=== PATIENT | female | born 1990 | race Caucasian/White ===

== ENCOUNTER 2016-10-18 14:15 | Emergency (ER) | payer OTHER ==
[2016-10-18 14:21] VITALS: BMI 33.4
--- NOTE | 2016-10-18 15:06 | PDOC ---
History of Present Illness - General Chief Complaint: Chest Pain Stated Complaint: SOB, CHEST PAIN Time Seen by Provider: 10/18/16 15:05 History Source: Patient Exam Limitations: No Limitations - History of Present Illness Initial Comments: 10/18/16 15:06 CHIEF COMPLAINT: Chest pain HISTORY OF PRESENT ILLNESS: This is an otherwise healthy 26 year old female who presents complaining of one day of chest pain. The pain is sharp, midsternal, and does not radiate. It seems to be worse with coughing and deep breathing. She has some mild associated shortness of breath which she attributes to inability to breathe deeply because of pain. She is not a smoker. She has no family or personal history of hypercoaguability. She denies recent travel/trauma /surgery and calf pain. She is on OCP. Vital signs on arrival are unremarkable. REVIEW OF SYSTEMS: GENERAL/CONSTITUTIONAL: No fever or chills. No weakness. No weight change. HEAD, EYES, EARS, NOSE AND THROAT: No change in vision. No ear pain or discharge. No sore throat. CARDIOVASCULAR: See HPI. RESPIRATORY: Pain with coughing/deep breathing, inability to take a deep breath. GASTROINTESTINAL: No nausea, vomiting, diarrhea or constipation. GENITOURINARY: No dysuria, frequency, or change in urination. MUSCULOSKELETAL: No joint or muscle swelling or pain. No neck or back pain. SKIN: No rash or easy bruising. NEUROLOGIC: No headache, vertigo, loss of consciousness, or loss of sensation. PSYCHIATRIC: No depression or anxiety. ENDOCRINE: No increased thirst. No abnormal weight change. HEMATOLOGIC/LYMPHATIC: No anemia, easy bleeding, or history of blood clots. ALLERGIC/IMMUNOLOGIC: No hives or skin allergy. No latex allergy. PHYSICAL EXAM: GENERAL: The patient is awake, alert, and fully oriented, in no acute distress. HEAD: Normal with no signs of trauma. ENT: Pupils equal, round and reactive to light, extraocular movements intact, sclera anicteric, conjunctiva clear. Neck supple. LUNGS: Clear to auscultation bilaterally. Normal excursion. No respiratory distress or use of accessory muscles. CV: RRR, S1/S2, no MRG. Cap refill < 2 sec. Pain reproducible with twisting motion and palpation of sternum. ABDOMEN: Soft, non-distended, non-tender. EXTREMITIES: Normal range of motion, no edema. NEUROLOGICAL: Normal speech, normal gait. CN II-XII grossly intact. PSYCH: Normal mood, normal affect. SKIN: Warm, dry, normal turgor, no rashes or lesions noted. Past History - Past Medical History Allergies/Adverse Reactions: Allergies Allergy/AdvReac Type Severity Reaction Status Date / Time No Known Allergies Allergy Verified 10/18/16 14:17 Home Medications: Ambulatory Orders Ibuprofen [Motrin -] 600 mg PO QID PRN #30 tablet 10/18/16 Norethindrone-E.estradiol-Iron [Melodie 24 Fe 1 mg-20 Mcg Tablet] 1 each PO HS Anemia: No Asthma: No Cancer: No Cardiac Disorders: No CVA: No COPD: No CHF: No Dementia: No Diabetes: No GI Disorders: No Disorders: No HTN: No Hypercholesterolemia: No Liver Disease: No Seizures: No Thyroid Disease: No Other medical history: pcos - Surgical History Abdominal Surgery: No Appendectomy: No Cardiac Surgery: No Cholecystectomy: No Lung Surgery: No Neurologic Surgery: (s/p scoliosis surgery 2006) Orthopedic Surgery: No - Immunization History Immunization Up to Date: Yes - Psycho/Social/Smoking Cessation Hx Anxiety: No Suicidal Ideation: No Smoking Status: No Smoking History: Never smoked Have you smoked in the past 12 months: No Number of Cigarettes Smoked Daily: 0 Information on smoking cessation initiated: No Hx Alcohol Use: No Drug/Substance Use Hx: No Substance Use Type: None Hx Substance Use Treatment: No *Physical Exam - Vital Signs Last Vital Signs Temp Pulse Resp BP Pulse Ox 97.5 F L 75 18 145/84 100 10/18/16 14:17 10/18/16 14:17 10/18/16 14:17 10/18/16 14:17 10/18/16 14:17 Heart Score/ECG Review - ECG Intrepretation Comment:: 10/18/16 17:42 NSR at 69 bpm. Medical Decision Making - Medical Decision Making 10/18/16 17:41 A/P: 26 year old female with chest pain, worse with movement. Suspect costochondritis, less likely PE. 1. EKG 2. CXR 3. D-dimer (on OCP) 4. Toradol 30mg IM for pain 5. Re-assess CXR wet read: normal study D-dimer <200 Patient is feling better following Toradol Followup instructions and return precautions reviewed. *DC/Admit/Observation/Transfer Diagnosis at time of Disposition: Atypical chest pain - Discharge Dispostion Disposition: HOME Admit: No - Prescriptions Prescriptions: Ibuprofen [Motrin -] 600 mg PO QID PRN #30 tablet PRN Reason: Pain - Referrals Referrals: Jailene Thao MD [Primary Care Provider] - 3 days - Patient Instructions Printed Discharge Instructions: DI for Atypical Chest Pain Additional Instructions: You were seen today for chest pain. Your EKG, chest xray, and d-dimer (test to screen for blood clots) are all normal. Rest and take ibuprofen as prescribed for muscular pain. Return here for worsening pain, difficulty breathing, or any other concerning symptoms.
[2016-10-18] MEDS ORDERED: KETOROLAC TROMETHAMINE 30 MG/1 ML VIAL IM ONE (15:33)
[2016-10-18] MEDS ORDERED: KETOROLAC TROMETHAMINE 30 MG/1 ML VIAL ONE (16:21)
[2016-10-18 18:25] VITALS: BP 110/65; PULSE 74; TEMP 97.7
== END 2016-10-18 18:25 | disposition home or self-care (01) ==
LOC: JER 14:15
PROC: 3E0233Z Introduction of Anti-inflammatory into Muscle, Percutaneous Approach (ICD-10-PCS; principal; 2016-10-18)
DX: R07.89 Other chest pain (principal)
CPT/HCPCS: 36415; 71020-TC; 84703; 85379; 96372; 99283-25

== ENCOUNTER 2016-10-30 09:14 | Emergency (ER) | payer OTHER ==
[2016-10-30 09:17] VITALS: TEMP 98.1; BMI 32.8
[2016-10-30 10:22] LABS: BASOPHIL 0.2 % (0-2.0); EOSINOPHIL 1.2 % (0-4.5); MCH 28.1 pg (25.7-33.7); MCHC 32.8 g/dl (32.0-36.0); MEAN CELL VOLUME 85.4 fl (80-96); MEAN PLT VOLUME 7.5 fl (7.5-11.1); NEUTROPHILS 75.7 % (42.8-82.8); PLATELET COUNT 256 K/MM3 (134-434); RDW 14.3 % (11.6-15.6)
[2016-10-30] MEDS ORDERED: SODIUM CHLORIDE 1,000 ML IV STA (10:30)
--- NOTE | 2016-10-30 10:37 | PDOC ---
History of Present Illness - General History Source: Patient - History of Present Illness Timing/Duration: reports: constant <Alessandro Ruffin - Last Filed: 10/30/16 12:45> <Sukhjinder Troy - Last Filed: 11/01/16 07:33> - General Chief Complaint: Pain Stated Complaint: ABD PAIN, VOMITING Time Seen by Provider: 10/30/16 09:53 Past History - Past Medical History Anemia: No Asthma: No Cancer: No Cardiac Disorders: No CVA: No COPD: No CHF: No Dementia: No Diabetes: No GI Disorders: No Disorders: No HTN: No Hypercholesterolemia: No Liver Disease: No Seizures: No Thyroid Disease: No - Surgical History Abdominal Surgery: No Appendectomy: No Cardiac Surgery: No Cholecystectomy: No Lung Surgery: No Neurologic Surgery: (s/p scoliosis surgery 2006) Orthopedic Surgery: No - Immunization History Immunization Up to Date: Yes - Psycho/Social/Smoking Cessation Hx Anxiety: No Suicidal Ideation: No Smoking Status: No Smoking History: Never smoked Have you smoked in the past 12 months: No Number of Cigarettes Smoked Daily: 0 Information on smoking cessation initiated: No Hx Alcohol Use: No Drug/Substance Use Hx: No Substance Use Type: None Hx Substance Use Treatment: No <Alessandro Ruffin - Last Filed: 10/30/16 12:45> <Sukhjinder Troy - Last Filed: 11/01/16 07:33> - Past Medical History Allergies/Adverse Reactions: Allergies Allergy/AdvReac Type Severity Reaction Status Date / Time No Known Allergies Allergy Verified 10/30/16 10:19 Home Medications: Ambulatory Orders Ibuprofen [Motrin -] 600 mg PO QID PRN #30 tablet 10/18/16 Norethindrone-E.estradiol-Iron [Melodie 24 Fe 1 mg-20 Mcg Tablet] 1 each PO HS Review of Systems - Review of Systems Constitutional: No: Chills, Fever ABD/GI: Yes: Diarrhea, Nausea, Vomiting, Abdominal cramping <Alessandro Ruffin - Last Filed: 10/30/16 12:45> *Physical Exam - Vital Signs Last Vital Signs Temp Pulse Resp BP Pulse Ox 98.1 F 107 H 19 106/55 99 10/30/16 09:15 10/30/16 09:15 10/30/16 09:15 10/30/16 09:15 10/30/16 09:15 - Physical Exam General Appearance: Yes: Appropriately Dressed. No: Apparent Distress HEENT: positive: Normal Voice Neck: positive: Supple Respiratory/Chest: negative: Respiratory Distress Gastrointestinal/Abdominal: positive: Normal Bowel Sounds, Soft. negative: Tender, Distended, Guarding Integumentary: positive: Dry, Warm Neurologic: positive: Fully Oriented, Alert, Normal Mood/Affect <Alessandro Ruffin - Last Filed: 10/30/16 12:45> - Vital Signs Last Vital Signs Temp Pulse Resp BP Pulse Ox 98.1 F 91 H 18 126/79 100 10/30/16 09:15 10/30/16 12:58 10/30/16 12:58 10/30/16 12:58 10/30/16 12:58 <Sukhjinder Troy - Last Filed: 11/01/16 07:33> ED Treatment Course - LABORATORY CBC & Chemistry Diagram: 10/30/16 10:12 10/30/16 10:12 - ADDITIONAL ORDERS Additional order review: 10/30/16 10:12 RBC 4.90 D MCV 85.4 MCHC 32.8 RDW 14.3 MPV 7.5 Neutrophils % 75.7 Lymphocytes % 16.0 D Monocytes % 6.9 Eosinophils % 1.2 Basophils % 0.2 <Alessandro Ruffin - Last Filed: 10/30/16 12:45> - LABORATORY CBC & Chemistry Diagram: 10/30/16 10:12 10/30/16 10:12 - ADDITIONAL ORDERS Additional order review: 10/30/16 10:12 RBC 4.90 D MCV 85.4 MCHC 32.8 RDW 14.3 MPV 7.5 Neutrophils % 75.7 Lymphocytes % 16.0 D Monocytes % 6.9 Eosinophils % 1.2 Basophils % 0.2 - Medications Given in the ED: ED Medications Discontinued Medications Generic Name Dose Route Start Last Admin Trade Name Freq PRN Reason Stop Dose Admin Sodium Chloride 1,000 mls @ 1,000 mls/hr 10/30/16 10:30 10/30/16 10:51 Normal Saline - IV 10/30/16 11:29 1,000 mls/hr ASDIR STA Administration <Sukhjinder Troy - Last Filed: 11/01/16 07:33> Medical Decision Making - Medical Decision Making 10/30/16 10:34 26 yo F, no sig hx, here w/ abd pain w/ n/v/d since yesterday. Pt states she has had 2 e/o n/v and numerous e/o NB, watery diarrhea. No f/c. States while in ED, feels dizzy. Reports multiple family members w/ similar sxs. No unusual food , recent travel or abx use see exam N/v/d +sick contacts M/l viral Well wesly w/ mild tachycardia and benign abd -labs -IVF -reassess 10/30/16 10:37 10/30/16 12:45 Wbc 15 on labs, m/l due to n/v. Rest of labs neg. Abd remains benign and no TTP over mcburbeys. Pt feels better s/p IVF and to po. Dc w/ supportive tx for m/l gastroenteritis. Reasons to return d/w pt <Alessandro Ruffin - Last Filed: 10/30/16 12:45> - Medical Decision Making 11/01/16 07:31 The patient was seen and evaluated in conjunction with CATHERINE Martin under my direct supervision, ancillary studies were reviewed. I agree with the plan as outlined by CATHERINE Ruffin . <Sukhjinder Troy - Last Filed: 11/01/16 07:33> *DC/Admit/Observation/Transfer <Alessandro Ruffin - Last Filed: 10/30/16 12:45> <Sukhjinder Troy - Last Filed: 11/01/16 07:33> Diagnosis at time of Disposition: Gastroenteritis - Discharge Dispostion Disposition: HOME Condition at time of disposition: Improved - Referrals Referrals: Jailene Thao MD [Primary Care Provider] - - Patient Instructions Printed Discharge Instructions: Viral Gastroenteritis Additional Instructions: Maintain adequate hydration, for the remainder of your symptoms, maintain a bland diet such as bananas, rice, applesauce and toast. These foods can help make your stools firmer and also replete certainly essential electrolytes. Please follow up with your primary care physician as needed - Post Discharge Activity Work/School Note: Back to School
[2016-10-30 10:49] LABS: ALBUMIN 3.7 g/dl (3.4-5.0); ALK PHOS 66 U/L (45-117); ANION GAP 10 (8-16); BILIRUBIN,TOTAL 0.8 mg/dL (0.2-1.0); CALCIUM 8.9 mg/dL (8.5-10.1); CO2 26 mmol/L (21-32); CREATININE 0.7 mg/dL (0.55-1.02); GLUCOSE,RANDOM 82 mg/dL (74-106); SGPT/ALT 56 U/L (12-78); TOT PROT 7.4 g/dl (6.4-8.2)
[2016-10-30 11:02] LABS: SGOT/AST 37 U/L (15-37)
[2016-10-30 11:26] LABS: URINE APPEARANCE SLCLOUDY; URINE BILIRUBIN NEGATIVE (NEGATIVE); URINE BLOOD NEGATIVE (NEGATIVE); URINE COLOR YELLOW; URINE GLUCOSE (UA) NEGATIVE (NEGATIVE); URINE KETONE NEGATIVE (NEGATIVE); URINE NITRITE NEGATIVE (NEGATIVE); URINE PROTEIN NEGATIVE (NEGATIVE); URINE UROBILINOGEN NEGATIVE E.U./dl (0.2-1.0)
[2016-10-30 11:34] LABS: URINE LEUK ESTERASE TRACE (NEGATIVE)
[2016-10-30 13:00] VITALS: BP 126/79; PULSE 91
== END 2016-10-30 13:00 | disposition home or self-care (01) ==
LOC: JER 09:14
PROC: 3E0337Z Introduction of Electrolytic and Water Balance Substance into Peripheral Vein, Percutaneous Approach (ICD-10-PCS; principal; 2016-10-30)
DX: K52.9 Noninfective gastroenteritis and colitis, unspecified (principal)
CPT/HCPCS: 36415; 80053; 81003; 81015; 84703; 85025; 96360; 99282-25

== ENCOUNTER 2017-09-14 11:50 | Emergency (ER) | payer OTHER ==
[2017-09-14 12:10] VITALS: TEMP 99.1; BMI 36.0
--- NOTE | 2017-09-14 13:28 | PDOC ---
History of Present Illness - General Chief Complaint: Chest Pain Stated Complaint: CHEST PAIN Time Seen by Provider: 09/14/17 13:28 - History of Present Illness Initial Comments: 09/14/17 13:41 Ms. Voss is a 27 yo female w/ pmh of hypothyroidism (not on replacement therapy ), PCOS, and HLD who presents for evaluation of midline chest pain. She reports this pain has been on and off for about a year but that it got acutely worse yesterday while she was showering. She was able to get to sleep last night but the pain remained when she woke up this AM. She has currently taken nothing for the pain. The patient denies shortness of breath, headache and dizziness. Denies fever, chills, nausea, vomit, diarrhea and constipation. Denies dysuria, frequency, urgency and hematuria. Allergies: NKDA Past History - Past Medical History Allergies/Adverse Reactions: Allergies Allergy/AdvReac Type Severity Reaction Status Date / Time No Known Allergies Allergy Verified 09/14/17 12:10 Home Medications: Ambulatory Orders Norethindrone-E.estradiol-Iron [Melodie 24 Fe 1 mg-20 Mcg Tablet] 1 each PO HS Anemia: No Asthma: No Cancer: No Cardiac Disorders: No CVA: No COPD: No CHF: No Dementia: No Diabetes: No GI Disorders: No Disorders: No HTN: No Hypercholesterolemia: No Liver Disease: No Seizures: No Thyroid Disease: Yes - Surgical History Abdominal Surgery: No Appendectomy: No Cardiac Surgery: No Cholecystectomy: No Lung Surgery: No Neurologic Surgery: (s/p scoliosis surgery 2006) Orthopedic Surgery: No - Immunization History Immunization Up to Date: Yes - Suicide/Smoking/Psychosocial Hx Smoking Status: No Smoking History: Never smoked Have you smoked in the past 12 months: No Number of Cigarettes Smoked Daily: 0 Hx Alcohol Use: Yes (SOCIAL) Drug/Substance Use Hx: No Substance Use Type: None Hx Substance Use Treatment: No Review of Systems - Review of Systems Comments:: 09/14/17 13:43 GENERAL/CONSTITUTIONAL: No fever or chills. No weakness. HEAD, EYES, EARS, NOSE AND THROAT: +Mild congestion last week that she reports has resolved. CARDIOVASCULAR: Midsternal chest pain without SOB. RESPIRATORY: No cough, wheezing, or hemoptysis. GASTROINTESTINAL: No nausea, vomiting, diarrhea or constipation. GENITOURINARY: No dysuria, frequency, or change in urination. MUSCULOSKELETAL: No joint or muscle swelling or pain. No neck or back pain. SKIN: No rash NEUROLOGIC: No headache, vertigo, loss of consciousness, or change in strength/ sensation. ENDOCRINE: No increased thirst. No abnormal weight change HEMATOLOGIC/LYMPHATIC: No anemia, easy bleeding, or history of blood clots. ALLERGIC/IMMUNOLOGIC: No hives or skin allergy. *Physical Exam - Vital Signs Last Vital Signs Temp Pulse Resp BP Pulse Ox 99.1 F 69 20 149/81 99 09/14/17 12:08 09/14/17 12:08 09/14/17 12:08 09/14/17 12:08 09/14/17 12:08 - Physical Exam Comments: 09/14/17 13:44 GENERAL: Awake, alert, and fully oriented, in no acute distress HEAD: No signs of trauma, normocephalic, atraumatic EYES: PERRLA, EOMI, sclera anicteric, conjunctiva clear ENT: Auricles normal inspection, hearing grossly normal, nares patent, oropharynx clear without exudates. Moist mucosa NECK: Normal ROM, supple, no lymphadenopathy, JVD, or masses LUNGS: No distress, speaks full sentences, clear to auscultation bilaterally HEART: Regular rate and rhythm, normal S1 and S2, no murmurs, rubs or gallops, peripheral pulses normal and equal bilaterally. ABDOMEN: Soft, nontender, normoactive bowel sounds. No guarding, no rebound. No masses EXTREMITIES: Normal inspection, Normal range of motion, no edema. No clubbing or cyanosis. NEUROLOGICAL: Cranial nerves II through XII grossly intact. Normal speech, normal gait, no focal sensorimotor deficits SKIN: Warm, Dry, normal turgor, no rashes or lesions noted. ED Treatment Course - LABORATORY CBC & Chemistry Diagram: 09/14/17 14:25 09/14/17 14:25 Medical Decision Making - Medical Decision Making 09/14/17 16:54 Ms. Voss is a 27 yo female w/ pmh of PCOS, HLD, and hypothyroidism on OCPs who presents w/ chronic chest pain. She reports she has been evaluated in the past but presents as it became worse last night. She denies worsening with exertion, diaphoresis, or SOB. D-dimer 422. Patient noted to have elevated liver enzymes - values given to patient and instructed to follow-up with PCP for further evaluation. Patient verbalized understanding and will comply. Additionally patient negative for UTI as below. Laboratory Results - last 24 hr 09/14/17 09/14/17 09/14/17 14:25 14:25 14:25 WBC 10.5 H RBC 5.09 Hgb 13.9 Hct 43.9 MCV 86.3 MCH 27.3 MCHC 31.7 L RDW 13.9 Plt Count 313 D MPV 7.9 D-Dimer 422 Sodium 141 Potassium 4.2 Chloride 106 Carbon Dioxide 24 Anion Gap 11 BUN 12 D Creatinine 0.7 Creat Clearance w eGFR > 60 Random Glucose 72 L Calcium 9.3 Total Bilirubin 0.6 D AST 74 H D ALT 123 H D Alkaline Phosphatase 75 Total Protein 7.8 Albumin 3.9 Urine Color Urine Appearance Urine pH Ur Specific [place] Urine Protein Urine Glucose (UA) Urine Ketones Urine Blood Urine Nitrite Urine Bilirubin Urine Urobilinogen Ur Leukocyte Esterase Urine HCG, Qual 09/14/17 09/14/17 15:05 15:05 WBC RBC Hgb Hct MCV MCH MCHC RDW Plt Count MPV D-Dimer Sodium Potassium Chloride Carbon Dioxide Anion Gap BUN Creatinine Creat Clearance w eGFR Random Glucose Calcium Total Bilirubin AST ALT Alkaline Phosphatase Total Protein Albumin Urine Color Dkyellow Urine Appearance Slcloudy Urine pH 5.0 Ur Specific [place] 1.026 Urine Protein Negative Urine Glucose (UA) Negative Urine Ketones Negative Urine Blood Negative Urine Nitrite Negative Urine Bilirubin Negative Urine Urobilinogen 2.0 H Ur Leukocyte Esterase Negative Urine HCG, Qual Negative *DC/Admit/Observation/Transfer Diagnosis at time of Disposition: Atypical chest pain - Discharge Dispostion Disposition: HOME - Referrals Referrals: Jailene Thao MD [Primary Care Provider] - - Patient Instructions Printed Discharge Instructions: DI for Atypical Chest Pain Additional Instructions: Please return if any increase in pain, fever, or other concerning symptoms. Follow-up later this week with primary care provider as discussed. - Post Discharge Activity
--- NOTE | 2017-09-14 13:50 | PDOC ---
Attending Attestation - HPI HPI: 09/14/17 15:09 The patient is a 27 year old female with a significant PMH of hypothyroidism and hyperlipidemia who presents to the emergency department with worsening chest pain beginning approximately 1 year ago. She describes her chest pain as localized in the midline with no radiation. She reports this pain has been on and off for about a year but that it got acutely worse yesterday while she was showering. She was able to get to sleep last night but the pain remained when she woke up this AM. She has currently taken nothing for the pain. Allergies: NKA <Enrique Escobedo - Last Filed: 09/14/17 15:09> - Resident Resident Name: Jamarcus Millard - ED Attending Attestation I have performed the following: I have examined & evaluated the patient, The case was reviewed & discussed with the resident, I agree w/resident's findings & plan, Exceptions are as noted - Physicial Exam PE: 09/14/17 16:35 Patient is awake and alert, afebrile, hemodynamically stable. Patient is morbidly obese. cta rrr no LEs edema - Medical Decision Making 09/14/17 16:36 Patient is a 27-year-old female with history of hypercholesterolemia, hypothyroidism and PCO S who presents to the ER with intermittent atraumatic sharp retrosternal chest discomfort for over a year. In the ER, patient is awake and alert, afebrile, nontoxic appearing. Lungs are noted to be clear. Chest x-ray reveals no evidence of cardiomegaly or infiltrate or effusion. EKG is within normal limit. D-dimer is normal and I do not suspect a PE. We'll administer Toradol for symptomatic relief. AST and ALT are noted to be minimally elevated. Patient will be advised to follow-up for further reevaluation. <[place] - Last Filed: 09/14/17 16:37>
[2017-09-14] MEDS ORDERED: KETOROLAC TROMETHAMINE 15 MG/ML VIAL IM ONE (14:10)
[2017-09-14 14:41] LABS: HEMATOCRIT 43.9 % (32.4-45.2); HEMOGLOBIN 13.9 GM/dL (10.7-15.3); MCH 27.3 pg (25.7-33.7); MCHC 31.7 g/dl (32.0-36.0); MEAN CELL VOLUME 86.3 fl (80-96); MEAN PLT VOLUME 7.9 fl (7.5-11.1); PLATELET COUNT 313 K/MM3 (134-434); RBC 5.09 M/mm3 (3.60-5.2); RDW 13.9 % (11.6-15.6); WHITE BLOOD COUNT 10.5 K/mm3 (4.0-10.0)
[2017-09-14 14:56] LABS: ALBUMIN 3.9 g/dl (3.4-5.0); ANION GAP 11 (8-16); BILIRUBIN,TOTAL 0.6 mg/dL (0.2-1.0); BLOOD UREA NITROGEN 12 mg/dL (7-18); CALCIUM 9.3 mg/dL (8.5-10.1); CHLORIDE 106 mmol/L (98-107); CO2 24 mmol/L (21-32); CREATININE 0.7 mg/dL (0.55-1.02); GLUCOSE,RANDOM 72 mg/dL (74-106); POTASSIUM 4.2 mmol/L (3.5-5.1); SGOT/AST 74 U/L (15-37); SGPT/ALT 123 U/L (12-78); SODIUM 141 mmol/L (136-145); TOT PROT 7.8 g/dl (6.4-8.2)
[2017-09-14 14:57] LABS: ALK PHOS 75 U/L (45-117)
[2017-09-14] MEDS ORDERED: KETOROLAC TROMETHAMINE 15 MG/ML VIAL ONE (15:06)
--- NOTE | 2017-09-14 15:07 | EKG ---
Test Reason : Blood Pressure : / mmHG Vent. Rate : 068 BPM Atrial Rate : 068 BPM P-R Int : 132 ms QRS Dur : 094 ms QT Int : 412 ms P-R-T Axes : 016 030 016 degrees QTc Int : 438 ms NORMAL SINUS RHYTHM NORMAL ECG WHEN COMPARED WITH ECG OF 30-DEC-2015 17:46, VENT. RATE HAS DECREASED BY 62 BPM NON-SPECIFIC CHANGE IN ST SEGMENT IN ANTERIOR LEADS T WAVE INVERSION LESS EVIDENT IN INFERIOR LEADS T WAVE INVERSION NO LONGER EVIDENT IN ANTEROLATERAL LEADS Confirmed by OMID FLANNERY, SHANNAN ([id number]) on 09/14/2017 3:07:13 PM Referred By: Confirmed By:SHANNAN ANNE MD
[2017-09-14 17:38] LABS: URINE APPEARANCE SLCLOUDY; URINE BILIRUBIN NEGATIVE (NEGATIVE); URINE BLOOD NEGATIVE (NEGATIVE); URINE COLOR DKYELLOW; URINE GLUCOSE (UA) NEGATIVE (NEGATIVE); URINE KETONE NEGATIVE (NEGATIVE); URINE LEUK ESTERASE NEGATIVE (NEGATIVE); URINE NITRITE NEGATIVE (NEGATIVE); URINE PROTEIN NEGATIVE (NEGATIVE)
[2017-09-14 17:56] VITALS: BP 133/78; PULSE 78
== END 2017-09-14 17:55 | disposition home or self-care (01) ==
LOC: JER 11:50
PROC: 3E0233Z Introduction of Anti-inflammatory into Muscle, Percutaneous Approach (ICD-10-PCS; principal; 2017-09-14)
DX: R07.89 Other chest pain (principal); E03.9 Hypothyroidism, unspecified; E78.5 Hyperlipidemia, unspecified
CPT/HCPCS: 36415; 71046-TC; 80053; 81003; 84703; 85027; 85379; 93005; 93010; 96372; 99283-25

== ENCOUNTER 2017-09-29 20:54 | Emergency (ER) | payer OTHER ==
[2017-09-29 21:17] VITALS: BP 127/77; PULSE 127; TEMP 100.5; BMI 36.0
--- NOTE | 2017-09-29 21:18 | PDOC ---
Rapid Medical Evaluation Chief Complaint: Cold Symptoms Time Seen by Provider: 09/29/17 21:11 Medical Evaluation: Allergies Allergy/AdvReac Type Severity Reaction Status Date / Time No Known Allergies Allergy Verified 09/14/17 12:10 09/29/17 21:11 CC: c/o cough , throat pain and fever x 1 day. TMAX 102. s/p cefuroxime 2 weeks ago for UTI. PE; patient alert ox3. + nasal congestion, + pharyngeal erythema. BS clear Plan: rapid strep, influenza patient to fast track for further management of care. 09/29/17 21:18
--- NOTE | 2017-09-29 22:42 | PDOC ---
History of Present Illness - General Chief Complaint: Cold Symptoms Stated Complaint: COLD Time Seen by Provider: 09/29/17 21:11 History Source: Patient Exam Limitations: No Limitations - History of Present Illness Initial Comments: CHIEF COMPLAINT: 27 y/o febrile female c/o flu like symptoms x 2 days. HISTORY OF PRESENT ILLNESS: The patient admits to fever, body aches, cough, runny nose. SHe did not receive the flu shot this year. Vital signs on arrival are notable for pulse of 127 secondary to temp of 100.5. REVIEW OF SYSTEMS: GENERAL/CONSTITUTIONAL: +fever/chills. +body aches. No weakness. No weight change. HEAD, EYES, EARS, NOSE AND THROAT: +runny nose. No change in vision. No ear pain or discharge. No sore throat. CARDIOVASCULAR: No chest pain or shortness of breath. RESPIRATORY: +cough. No wheezing, or hemoptysis. GASTROINTESTINAL: +nausea. No vomiting, diarrhea. GENITOURINARY: No dysuria, frequency, or change in urination. MUSCULOSKELETAL: No joint or muscle swelling or pain. No neck or back pain. SKIN: No rash or easy bruising. NEUROLOGIC: No headache, vertigo, loss of consciousness, or loss of sensation. PHYSICAL EXAM: GENERAL: The patient is awake, alert, and fully oriented, in no acute distress. SHe has nasal congestion and appears ill. HEAD: Normal with no signs of trauma. ENT: Pupils equal, round and reactive to light, extraocular movements intact, sclera anicteric, conjunctiva clear. Neck supple. LUNGS: Clear to auscultation bilaterally. Normal excursion. No respiratory distress or use of accessory muscles. CV: RRR, S1/S2, no MRG. Cap refill < 2 sec. ABDOMEN: Soft, non-distended, non-tender even to deep palpation, no hepatomegaly or splenomegaly, no masses. EXTREMITIES: Normal range of motion, no edema. NEUROLOGICAL: Normal speech, normal gait. CN II-XII grossly intact. PSYCH: Normal mood, normal affect. SKIN: Warm, dry, normal turgor, no rashes or lesions noted. Past History - Past Medical History Allergies/Adverse Reactions: Allergies Allergy/AdvReac Type Severity Reaction Status Date / Time No Known Allergies Allergy Verified 09/29/17 21:12 Home Medications: Ambulatory Orders NK [No Known Home Medication] 09/29/17 Oseltamivir Phosphate [Tamiflu] 75 mg PO BID #10 capsule 09/29/17 Anemia: No Asthma: No Cancer: No Cardiac Disorders: No CVA: No COPD: No CHF: No Dementia: No Diabetes: No GI Disorders: No Disorders: No HTN: No Hypercholesterolemia: No Liver Disease: No Seizures: No Thyroid Disease: Yes - Surgical History Abdominal Surgery: No Appendectomy: No Cardiac Surgery: No Cholecystectomy: No Lung Surgery: No Neurologic Surgery: (s/p scoliosis surgery 2006) Orthopedic Surgery: No - Immunization History Immunization Up to Date: Yes - Suicide/Smoking/Psychosocial Hx Smoking Status: No Smoking History: Never smoked Have you smoked in the past 12 months: No Number of Cigarettes Smoked Daily: 0 Information on smoking cessation initiated: No Hx Alcohol Use: Yes (socially) Drug/Substance Use Hx: No Substance Use Type: None Hx Substance Use Treatment: No *Physical Exam - Vital Signs Last Vital Signs Temp Pulse Resp BP Pulse Ox 100.5 F H 127 H 20 127/77 100 09/29/17 21:12 09/29/17 21:12 09/29/17 21:12 09/29/17 21:12 09/29/17 21:12 ED Treatment Course - ADDITIONAL ORDERS Additional order review: 09/29/17 21:11 Influenza Types A,B Antigen (MATT) - Final Nasopharyngeal Swab - Final 09/29/17 21:11 Group A Strep Rapid Antigen - Final Throat Medical Decision Making - Medical Decision Making A/P: 27 y/o female with flu like symptoms. RME sent flu swab. INfluenza - positive Gave patient the results. Sent rx for tamiflu to pharmacy. Instructed her to take tylenol and motrin for fever, drink plenty of fluids and get lots of rest. Pt instructed to return to the ER with any worsening or concerning symptoms. The patient verbalizes understanding of all instructions, has no further questions and is awaiting discharge. *DC/Admit/Observation/Transfer Diagnosis at time of Disposition: Influenza - Discharge Dispostion Disposition: HOME Condition at time of disposition: Stable - Prescriptions Prescriptions: Oseltamivir Phosphate [Tamiflu] 75 mg PO BID #10 capsule - Referrals Referrals: Jailene Thao MD [Primary Care Provider] - - Patient Instructions Printed Discharge Instructions: DI for Influenza -- Adult Additional Instructions: Discharge Instructions: -You have the flu -A prescription for tamiflu was sent to your pharmacy -Please take tylenol and motrin for fever -Give plenty of fluids -Get lots of rest -Return to the ER with any worsening or concerning symptoms - Post Discharge Activity Forms/Work/School Notes: Back to School
== END 2017-09-29 22:43 | disposition home or self-care (01) ==
LOC: JERFT 20:54
DX: J09.X2 Influenza due to identified novel influenza A virus with other respiratory manifestations (principal)
CPT/HCPCS: 87070; 87430; 87804; 99281-25

== ENCOUNTER 2018-05-08 19:03 | Emergency (ER) | payer OTHER ==
--- NOTE | 2018-05-08 19:37 | PDOC ---
History of Present Illness - General Chief Complaint: Ear Problem Stated Complaint: EAR PROBLEM Time Seen by Provider: 05/08/18 19:33 History Source: Patient Exam Limitations: No Limitations - History of Present Illness Initial Comments: 05/08/18 19:34 Pt is a 27 y/o F who presents for r ear pain for two days. She states that the right ear hurts to the touch and she feels the pain radiate down to her jaw. Denies hearing changes, fevers, chills, SOB, chest pain, n/v/d. Past History - Travel Traveled outside of the country in the last 30 days: No Close contact w/someone who was outside of country & ill: No - Past Medical History Allergies/Adverse Reactions: Allergies Allergy/AdvReac Type Severity Reaction Status Date / Time No Known Allergies Allergy Verified 05/08/18 19:32 Home Medications: Ambulatory Orders Amoxicillin - [Amoxicillin 500mg Capsule -] 500 mg PO BID #14 capsule 05/08/18 Ciprofloxacin HCl/Dexameth [Ciprodex Otic Suspension] 4 drop AD BID #1 bottle Anemia: No Asthma: No Cancer: No Cardiac Disorders: No CVA: No COPD: No CHF: No Dementia: No Diabetes: No GI Disorders: No Disorders: No HTN: No Hypercholesterolemia: No Liver Disease: No Seizures: No Thyroid Disease: Yes - Surgical History Abdominal Surgery: No Appendectomy: No Cardiac Surgery: No Cholecystectomy: No Lung Surgery: No Neurologic Surgery: (s/p scoliosis surgery 2006) Orthopedic Surgery: No - Immunization History Immunization Up to Date: Yes - Suicide/Smoking/Psychosocial Hx Smoking Status: No Smoking History: Never smoked Have you smoked in the past 12 months: No Number of Cigarettes Smoked Daily: 0 Information on smoking cessation initiated: No Hx Alcohol Use: No Drug/Substance Use Hx: No Substance Use Type: None Hx Substance Use Treatment: No Review of Systems - Review of Systems Able to Perform ROS?: Yes Comments:: 05/08/18 19:33 CONSTITUTIONAL: Absent: fever, chills, diaphoresis, generalized weakness, malaise, loss of appetite HEENT: Present: R ear pain Absent: rhinorrhea, nasal congestion, throat pain, throat swelling, difficulty swallowing, mouth swelling, eye pain, visual Changes SKIN: Absent: rash, itching, pallor HEMATOLOGIC/IMMUNOLOGIC: Absent: easy bleeding, easy bruising, lymphadenopathy, frequent infections NEUROLOGIC: Absent: headache, focal weakness or paresthesias, dizziness, unsteady gait, seizure, mental status changes, bladder or bowel incontinence PSYCHIATRIC: Absent: anxiety, depression, suicidal or homicidal ideation, hallucinations. Is the patient limited Sinhala proficient: No *Physical Exam - Vital Signs Last Vital Signs Temp Pulse Resp BP Pulse Ox 99.3 F 77 17 139/72 100 05/08/18 19:29 05/08/18 19:29 05/08/18 19:29 05/08/18 19:29 05/08/18 19:29 - Physical Exam Comments: 05/08/18 19:33 GENERAL: Well developed, well nourished. Awake and alert. No acute distress. HEENT: Normocephalic, atraumatic. PERRLA, EOMI. No conjunctival pallor. Sclera are non- icteric. Moist mucous membranes. Oropharynx is clear. R TM not able to be visualized d/t R ear canal edema, and purulent drainage consistent with otitis externa. TTP of the R tragus NECK: Supple. Full ROM. No JVD. Carotid pulses 2+ and symmetric, without bruits. No thyromegaly. No lymphadenopathy. SKIN: Warm and dry. Normal capillary refill. No rashes. No jaundice. NEUROLOGICAL: Alert, awake, appropriate. Cranial nerves 2-12 intact. No deficits to light touch and temperature in face, upper extremities and lower extremities. No motor deficits in the in face, upper extremities and lower extremities. Normoreflexic in the upper and lower extremities. Normal speech. Toes are down- going bilaterally. Gait is normal without ataxia. Medical Decision Making - Medical Decision Making 05/08/18 19:52 Pt is a 27 y/o F who presents for r ear pain for two days. -Exam: purulent drainage and swelling to the R Ear canal consistent with otitis externa. -Unable to visualize R TM -Will treat prophylactically for R AOM in addition -Amox and ciprodex prescribed -DC home with ENT follow up. -Return precautions given. Pt understands all dc instructions and all questions were answered. *DC/Admit/Observation/Transfer Diagnosis at time of Disposition: Otitis externa Qualifiers: Otitis externa type: unspecified type Chronicity: acute Laterality: right Qualified Code(s): H60.501 - Unspecified acute noninfective otitis externa, right ear - Discharge Dispostion Disposition: HOME Condition at time of disposition: Stable Decision to Admit order: No - Referrals Referrals: Santana Miguel MD [Staff Physician] - - Patient Instructions Printed Discharge Instructions: DI for Otitis Externa Additional Instructions: You have otitis externa. This is an infection of the ear canal. Please use the eardrops once a day as directed for the next 10 days to the affected ear. Please take the amoxicillin twice a day for 10 days. Do not put anything in the ear, including q-tips. Keep the ear dry. Do not go swimming for the next 2 weeks. Pat the ear dry with a towel after showering. Follow up with ENT if your symptoms are not improving in 7-10 days Return to the ED if you have worsening pain, fevers, dizziness or if you have any changes in your symptoms. - Post Discharge Activity
[2018-05-08 19:38] VITALS: BP 139/72; PULSE 77; TEMP 99.3; BMI 36.0
[2018-05-08] MEDS ORDERED: OFLOXACIN 0.3% OTIC SOLUTION 5 ML BOTTLE AD ONE (19:45)
[2018-05-08] MEDS ORDERED: AMOXICILLIN 500 MG CAPSULE (FP) PO ONE (19:50)
[2018-05-08] MEDS ORDERED: AMOXICILLIN 250 MG CAPSULE ONE (19:52)
== END 2018-05-08 20:02 | disposition home or self-care (01) ==
LOC: JER 19:03
DX: H60.501 Unspecified acute noninfective otitis externa, right ear (principal)
CPT/HCPCS: 99281-25

== ENCOUNTER 2018-06-16 19:27 | Emergency (ER) | payer OTHER ==
[2018-06-16 19:33] VITALS: BP 136/73; PULSE 104; TEMP 99; BMI 33.9
[2018-06-16] MEDS ORDERED: ACETAMINOPHEN 325 MG TABLET (FP) PO ONE (19:34)
--- NOTE | 2018-06-16 19:38 | PDOC ---
Rapid Medical Evaluation Chief Complaint: Back Pain Time Seen by Provider: 06/16/18 19:31 Medical Evaluation: Allergies Allergy/AdvReac Type Severity Reaction Status Date / Time No Known Allergies Allergy Verified 06/16/18 19:31 06/16/18 19:31 c/o right upper back pain intermittently for 2-3 days today is worse. denies flank pain, urinary symptoms, cough, trauma / injury PE: patient alert ox3. no CVAT A: back pain P: ua/ urine , tylenol patient to the ER for further management. Discharge Disposition - Diagnosis Back pain Qualifiers: Back pain location: thoracic back pain Chronicity: acute Back pain laterality: unspecified Qualified Code(s): M54.6 - Pain in thoracic spine - Referrals Referrals: Jailene Thao MD [Primary Care Provider] - - Patient Instructions - Post Discharge Activity
[2018-06-16] MEDS ORDERED: ACETAMINOPHEN 325 MG TABLET (FP) ONE (19:58)
[2018-06-16 20:00] LABS: HCG,QUALITATIVE URINE Negative
[2018-06-16 20:08] LABS: URINE APPEARANCE CLEAR; URINE BILIRUBIN NEGATIVE (<2.0 mg/dL); URINE COLOR YELLOW; URINE GLUCOSE (UA) NEGATIVE (NEGATIVE); URINE KETONE NEGATIVE (NEGATIVE); URINE LEUK ESTERASE NEGATIVE (NEGATIVE); URINE NITRITE NEGATIVE (NEGATIVE); URINE PROTEIN NEGATIVE (NEGATIVE)
[2018-06-16] MEDS ORDERED: KETOROLAC TROMETHAMINE 60 MG/2 ML VIAL IM ONE (20:52)
[2018-06-16] MEDS ORDERED: KETOROLAC TROMETHAMINE 60 MG/2 ML VIAL ONE (20:56)
--- NOTE | 2018-06-16 20:58 | PDOC ---
History of Present Illness - General Chief Complaint: Back Pain Stated Complaint: BACK PAIN Time Seen by Provider: 06/16/18 19:31 History Source: Patient Exam Limitations: No Limitations - History of Present Illness Initial Comments: 06/16/18 20:53 HISTORY OF PRESENT ILLNESS: A 28-year-old woman past medical history of scoliosis of presents emergency Department with atraumatic mid back pain for 3 days. Patient states she's been taking Tylenol and Motrin with no relief of pain. Patient does not remember striking her back, falling or any other trauma. Patient does not report any alleviating or aggravating factors. 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 She denies any saddle anesthesia or incontinence of bowel or bladder. She denies any urinary retention, history of IV drug use or cancer. No recent travel or sick contacts. PAST MEDICAL HISTORY: scoliosis SURGICAL HISTORY: repair of scoliosis ALLERGIES: No known drug allergies REVIEW OF SYSTEMS General/Constitutional: Denies fever or chills. Denies weakness, weight change. HEENT: Denies change in vision. Denies ear pain or discharge. Denies sore throat. Cardiovascular: Denies chest pain or shortness of breath. Respiratory: Denies cough, wheezing, or hemoptysis. Gastrointestinal: Denies nausea, vomiting, diarrhea or constipation. Denies rectal bleeding. Genitourinary: Denies dysuria, frequency, or change in urination. Musculoskeletal: Denies joint or muscle swelling or pain. Denies neck pain. Endorses mid back pain. Skin and breasts: Denies rash or easy bruising. Neurologic: Denies headache, vertigo, loss of consciousness, or loss of sensation. Psychiatric: Denies depression or anxiety. Endocrine: Denies increased thirst. Denies abnormal weight change. Hematologic/Lymphatic: Denies anemia, easy bleeding, or history of blood clots. Allergic/Immunologic: Denies hives or skin allergy. Denies latex allergy. PHYSICAL EXAM General Appearance: Well-appearing, appropriately dressed. No apparent distress , no intoxication. HEENT: EOMI, PERRLA, normal ENT inspection, normal voice, TMs normal, pharynx normal. No conjunctival pallor. No photophobia, scleral icterus. Neck: Supple. Trachea midline. No tenderness, rigidity, carotid bruit, stridor , lymphadenopathy, or thyromegaly. Respiratory/Chest: Lungs CTAB. No shortness of breath, chest tenderness, respiratory distress, accessory muscle use. No crackles, rales, rhonchi, stridor , wheezing, dullness Cardiovascular: RRR. S1, S2. No JVD, murmur, bradycardia, tachycardia. Vascular Pulses: Dorsalis-Pedis (R): 2+, Dorsalis-Pedis (L): 2+ Gastrointestinal/Abdominal: Normal bowel sounds. Abdomen soft, non-distended. No tenderness or rebound tenderness. No organomegaly, pulsatile mass, guarding, hernia, hepatomegaly, splenomegaly. Lymphatic: No adenopathy, tenderness. Musculoskeletal/Extremities: Normal inspection. FROM of all extremities, normal capillary refill. Pelvis Stable. No CVA tenderness. No tenderness to extremities, pedal edema, swelling, erythema or deformity. Bony tenderness to T7 -T8. No step-offs, deformities or crepitus present. Integumentary: Appropriate color, dry, warm. No cyanosis, erythema, jaundice or rash Neurologic: electric meter reader II-XII intact. Fully oriented, alert. Appropriate mood/affect. Motor strength 5/5. No appreciable EOM palsy, facial droop or sensory deficit. Past History - Past Medical History Allergies/Adverse Reactions: Allergies Allergy/AdvReac Type Severity Reaction Status Date / Time No Known Allergies Allergy Verified 06/16/18 19:31 Home Medications: Ambulatory Orders Methocarbamol [Robaxin -] 1,500 mg PO Q8H PRN #30 tablet 06/16/18 Anemia: No Asthma: No Cancer: No Cardiac Disorders: No CVA: No COPD: No CHF: No Dementia: No Diabetes: No GI Disorders: No Disorders: No HTN: No Hypercholesterolemia: No Liver Disease: No Seizures: No Thyroid Disease: Yes - Surgical History Abdominal Surgery: No Appendectomy: No Cardiac Surgery: No Cholecystectomy: No Lung Surgery: No Neurologic Surgery: (s/p scoliosis surgery 2006) Orthopedic Surgery: No - Immunization History Immunization Up to Date: Yes - Suicide/Smoking/Psychosocial Hx Smoking Status: No Smoking History: Never smoked Have you smoked in the past 12 months: No Number of Cigarettes Smoked Daily: 0 Hx Alcohol Use: Yes (socially) Drug/Substance Use Hx: No Substance Use Type: None Hx Substance Use Treatment: No *Physical Exam - Vital Signs Last Vital Signs Temp Pulse Resp BP Pulse Ox 99 F 104 H 18 136/73 98 06/16/18 19:31 06/16/18 19:31 06/16/18 19:31 06/16/18 19:31 06/16/18 19:31 ED Treatment Course - ADDITIONAL ORDERS Additional order review: Laboratory Results 06/16/18 19:30 Urine Color Yellow Urine Appearance Clear Urine pH 5.0 Ur Specific [place] 1.021 Urine Protein Negative Urine Glucose (UA) Negative Urine Ketones Negative Urine Blood Negative Urine Nitrite Negative Urine Bilirubin Negative Urine Urobilinogen 2.0 H Ur Leukocyte Esterase Negative Urine HCG, Qual Negative - RADIOLOGY Radiology Studies Ordered: Category Date Time Status SPINE-THORACIC [RAD] Stat Radiology 06/16/18 20:52 Ordered - Medications Given in the ED: ED Medications Discontinued Medications Generic Name Dose Route Start Last Admin Trade Name Freq PRN Reason Stop Dose Admin Acetaminophen 975 mg 06/16/18 19:34 06/16/18 19:59 Tylenol - PO 06/16/18 19:35 975 mg ONCE ONE Administration Medical Decision Making - Medical Decision Making 06/16/18 20:58 A/P: 28-year-old woman with mid back pain for 3 days Bony tenderness to T7-T8. No deformities, crepitus or step-off noted Full range of motion with flexion and extension of the spine Lungs clear to auscultation bilaterally Abdomen soft nontender nondistended Urine, x-ray, Toradol, reassess 06/16/18 21:53 X-ray of thoracic spine as read by Dr. Dyer: No definite radiographic evidence of acute pathology. There is mild to moderate ventral spondylolysis within the mid thoracic spine. Mild gastric curvatures visualized. I discussed the physical exam findings, ancillary test results and final diagnoses with the patient. I answered all of the patient's questions. The patient was satisfied with the care received and felt comfortable with the discharge plan and treatment plan. The patient will call their primary care physician within 24 hours to arrange follow-up and will return to the Emergency Department with any new, persistent or worsening symptoms. *DC/Admit/Observation/Transfer Diagnosis at time of Disposition: Back pain Qualifiers: Back pain location: thoracic back pain Chronicity: acute Back pain laterality: unspecified Qualified Code(s): M54.6 - Pain in thoracic spine - Discharge Dispostion Disposition: HOME Condition at time of disposition: Stable Decision to Admit order: No - Prescriptions Prescriptions: Methocarbamol [Robaxin -] 1,500 mg PO Q8H PRN #30 tablet PRN Reason: Back Pain - Referrals Referrals: Jailene Thao MD [Primary Care Provider] - - Patient Instructions Additional Instructions: Rest, no heavy lifting or exercise until pain is resolved Hot soaks to back as often as possible/hot showers or Jacuzzis No massage or therapy until spasm is gone Continue ibuprofen 2-200 mg tablets every 6 hours for the next 3 days then as needed for pain and swelling Robaxin 1500mg every 8 hours as needed for spasm If not significant improvement within 24 hours with medication and rest regime, followup with private physician for change in medications and /or therapy. - Post Discharge Activity
== END 2018-06-16 21:58 | disposition home or self-care (01) ==
LOC: JERFT 19:27
PROC: 3E0233Z Introduction of Anti-inflammatory into Muscle, Percutaneous Approach (ICD-10-PCS; principal; 2018-06-16)
DX: M54.6 Pain in thoracic spine (principal)
CPT/HCPCS: 72070-TC-FY; 81003; 84703; 96372; 99281-25

== ENCOUNTER 2018-10-29 22:54 | Emergency (ER) | payer OTHER ==
[2018-10-29 23:09] VITALS: BP 126/78; PULSE 77; TEMP 98.3; BMI 34.2
[2018-10-30 00:59] LABS: BASO % 0.4 % (0-2.0); EOS % 1.8 % (0-4.5); HEMATOCRIT 38.6 % (32.4-45.2); HEMOGLOBIN 12.9 GM/dL (10.7-15.3); LYMPH % 35.5 % (8-40); MCH 26.9 pg (25.7-33.7); MCHC 33.4 g/dl (32.0-36.0); MEAN CELL VOLUME 80.7 fl (80-96); MEAN PLT VOLUME 7.5 fl (7.5-11.1); MONO % 7.7 % (3.8-10.2); NEUT % 54.6 % (42.8-82.8); PLATELET COUNT 320 K/MM3 (134-434); RBC 4.79 M/mm3 (3.60-5.2); RDW 15.6 % (11.6-15.6); WHITE BLOOD COUNT 9.4 K/mm3 (4.0-10.0)
--- NOTE | 2018-10-30 01:29 | PDOC ---
History of Present Illness - General Chief Complaint: Chest Pain Stated Complaint: CHEST PAIN Time Seen by Provider: 10/29/18 23:54 History Source: Patient Exam Limitations: No Limitations - History of Present Illness Initial Comments: 10/30/18 01:28 Patient is a 28 year old female with history of hyperlipidemia, hepatomegaly, complaining of chest pain 1 week. States chest pain started on the left side and now radiates to the middle and to the right. Pain is sharp, stabbing, nonreproducible 7/10, intermittent and worsens when she takes a deep breath it states sometimes it feels like she can't take a deep breath due to the pain. states intermittently she also has leg swelling, intermittently right > left. She denies any injury. She is on OCP. No recent travel, no SOB, does not smoke cigarettes. Family history negative for KS/CVA/DVT/PE. PMHX: as above ALL: NKDA GENERAL/CONSTITUTIONAL: [No fever or chills. No weakness. No weight change.] HEAD, EYES, EARS, NOSE AND THROAT: [No change in vision. No ear pain or discharge. No sore throat.] CARDIOVASCULAR: [(+) chest pain or shortness of breath.] RESPIRATORY: [No cough, wheezing, or hemoptysis.] GASTROINTESTINAL: [No nausea, vomiting, diarrhea or constipation. No rectal bleeding.] GENITOURINARY: [No dysuria, frequency, or change in urination.] MUSCULOSKELETAL: [No joint or muscle swelling or pain. No neck or back pain.] SKIN AND BREASTS: [No rash or easy bruising.] NEUROLOGIC: [No headache, vertigo, loss of consciousness, or loss of sensation.] PSYCHIATRIC: [No depression or anxiety.] ENDOCRINE: [No increased thirst. No abnormal weight change.] HEMATOLOGIC/LYMPHATIC: [No anemia, easy bleeding, or history of blood clots.] ALLERGIC/IMMUNOLOGIC: [No hives or skin allergy. No latex allergy.] GENERAL: [The patient is awake, alert, and fully oriented, in no acute distress. ] HEAD: [Normal with no signs of trauma.] EYES: [Pupils equal, round and reactive to light, extraocular movements intact, sclera anicteric, conjunctiva clear.] ENT: [Ears normal, nares patent, oropharynx clear without exudates. Moist mucous membranes.] NECK: [Normal range of motion, supple without lymphadenopathy, JVD, or masses.] LUNGS: [Breath sounds equal, clear to auscultation bilaterally. No wheezes, and no crackles.] HEART: [Regular rate and rhythm, normal S1 and S2 without murmur, rub.] ABDOMEN: [Soft, nontender, normoactive bowel sounds. No guarding, no rebound. No masses.] EXTREMITIES: [Normal range of motion, no edema. No clubbing or cyanosis. No cords, erythema, or tenderness.] NEUROLOGICAL: [Cranial nerves II through XII grossly intact. Normal speech, normal gait.] PSYCH: [Normal mood, normal affect.] SKIN: [Warm, Dry, normal turgor, no rashes or lesions noted.] Past History - Past Medical History Allergies/Adverse Reactions: Allergies Allergy/AdvReac Type Severity Reaction Status Date / Time No Known Allergies Allergy Verified 06/16/18 19:31 Home Medications: Ambulatory Orders Methocarbamol [Robaxin -] 1,500 mg PO Q8H PRN #30 tablet 06/16/18 Anemia: No Asthma: No Cancer: No Cardiac Disorders: No CVA: No COPD: No CHF: No Dementia: No Diabetes: No GI Disorders: No Disorders: No HTN: No Hypercholesterolemia: No Liver Disease: No Seizures: No Thyroid Disease: Yes - Surgical History Abdominal Surgery: No Appendectomy: No Cardiac Surgery: No Cholecystectomy: No Lung Surgery: No Neurologic Surgery: (s/p scoliosis surgery 2006) Orthopedic Surgery: No - Immunization History Immunization Up to Date: Yes - Suicide/Smoking/Psychosocial Hx Smoking Status: No Smoking History: Never smoked Have you smoked in the past 12 months: No Number of Cigarettes Smoked Daily: 0 Information on smoking cessation initiated: No Hx Alcohol Use: No Drug/Substance Use Hx: No Substance Use Type: None Hx Substance Use Treatment: No Cardiac Specific PMH - Complaint Specific PMHX Pacemaker: No *Physical Exam - Vital Signs Last Vital Signs Temp Pulse Resp BP Pulse Ox 98.3 F 77 20 126/78 98 10/29/18 23:06 10/29/18 23:06 10/29/18 23:06 10/29/18 23:06 10/29/18 23:06 Moderate Sedation - Procedure Monitoring Vital Signs: Procedure Monitoring Vital Signs Temperature 98.3 F 10/29/18 23:06 Pulse Rate 77 10/29/18 23:06 Respiratory Rate 20 10/29/18 23:06 Blood Pressure 126/78 10/29/18 23:06 O2 Sat by Pulse Oximetry (%) 98 10/29/18 23:06 ED Treatment Course - LABORATORY CBC & Chemistry Diagram: 10/30/18 00:35 10/30/18 00:35 - ADDITIONAL ORDERS Additional order review: Laboratory Results 10/30/18 10/30/18 10/30/18 00:52 00:35 00:35 D-Dimer 344 Sodium 138 Potassium 4.0 Chloride 106 Carbon Dioxide 26 Anion Gap 6 L BUN 12 Creatinine 0.7 Creat Clearance w eGFR > 60 Random Glucose 92 Calcium 8.5 Total Bilirubin 0.5 AST 41 H ALT 80 H Alkaline Phosphatase 91 Total Protein 7.2 Albumin 3.4 Serum , Qual Negative 10/30/18 00:35 RBC 4.79 MCV 80.7 MCHC 33.4 RDW 15.6 D MPV 7.5 Neutrophils % 54.6 D Lymphocytes % 35.5 D Monocytes % 7.7 Eosinophils % 1.8 Basophils % 0.4 - RADIOLOGY Radiology Studies Ordered: Category Date Time Status CHEST PA & LAT [RAD] Stat Radiology 10/30/18 00:15 Taken DUPLEX VASCUL US-2LEGS [US] Stat Ultrasound 10/30/18 00:14 Taken Medical Decision Making - Medical Decision Making 10/30/18 01:28 Patient is a 28 year old female with history of hyperlipidemia, hepatomegaly, complaining of chest pain 1 week. States chest pain started on the left side and now radiates to the middle and to the right. Pain is sharp, stabbing, nonreproducible 7/10, intermittent and worsens when she takes a deep breath it states sometimes it feels like she can't take a deep breath due to the pain. states intermittently she also has leg swelling, intermittently right > left. She denies any injury. She is on OCP. No recent travel, no SOB, does not smoke cigarettes. Family history negative for KS/CVA/DVT/PE. No concerns for ACS, she is on OCPs and may present a risk for PE will do labs which include d-dimer, EKG any pain meds offered. EKG: Sinus rhythm rate 74, NAD, no ST-T wave changes 10/30/18 01:28 Patient Full Name: CHRISTI HUNTER Patient Accession No: [id number] Patient : 1990 Reason for Exam: leg swelling Referring Physician: Patient Name: ELSA BARRAZA THIS IS A PRELIMINARY REPORT FROM [facility] DATE OF SERVICE: 2018-10-30 00:22:45 IMAGES: 40 EXAM: BILATERAL LOWER EXTREMITY VENOUS DUPLEX SONOGRAM. HISTORY: Leg swelling. COMPARISON: None. FINDINGS: 1. Negative for DVT in bilateral lower extremities. THIS DOCUMENT HAS BEEN ELECTRONICALLY SIGNED Mac Lugo M.D 10/30/2018 01:08 NIKOLAS Rodriguez Please call [facility] [phone] ([phone]) with questions. INTERPRETING RADIOLOGIST: Mac Lugo MD Electronically Signed: Oct 30, 2018 01:09AM EST Laboratory Tests 10/30/18 00:35 D-Dimer 344 10/30/18 01:58 I discussed the physical exam findings, ancillary test results and final diagnoses with the patient. I answered all of the patient's questions. The patient was satisfied with the care received and felt comfortable with the discharge plan and treatment plan. The Patient agrees to follow up with the primary care physician within 24-72 hours. 10/30/18 05:34 *DC/Admit/Observation/Transfer Diagnosis at time of Disposition: Chest pain Qualifiers: Chest pain type: unspecified Qualified Code(s): R07.9 - Chest pain, unspecified - Discharge Dispostion Disposition: HOME Condition at time of disposition: Improved - Referrals Referrals: Jailene Thao MD [Primary Care Provider] - Kevin Vilchis MD [Staff Physician] - - Patient Instructions Printed Discharge Instructions: DI for Atypical Chest Pain Additional Instructions: Your Discharge Instructions: You must call primary care physician within 24 hours to arrange follow-up. Return to the Emergency Department with any new, persistent or worsening symptoms, for fever, chills, SOB, dizziness or any other concerning changes that may occur. follow-up with cardiology call for an appointment. - Post Discharge Activity
[2018-10-30 01:31] LABS: ALBUMIN 3.4 g/dl (3.4-5.0); ALK PHOS 91 U/L (45-117); ANION GAP 6 MMOL/L (8-16); BILIRUBIN,TOTAL 0.5 mg/dL (0.2-1); BLOOD UREA NITROGEN 12 mg/dL (7-18); CALCIUM 8.5 mg/dL (8.5-10.1); CHLORIDE 106 mmol/L (98-107); CO2 26 mmol/L (21-32); CREATININE 0.7 mg/dL (0.55-1.3); GLUCOSE,RANDOM 92 mg/dL (74-106); SGOT/AST 41 U/L (15-37); SGPT/ALT 80 U/L (13-61); SODIUM 138 mmol/L (136-145); TOT PROT 7.2 g/dl (6.4-8.2)
--- NOTE | 2018-10-30 09:42 | EKG ---
Test Reason : Blood Pressure : / mmHG Vent. Rate : 074 BPM Atrial Rate : 074 BPM P-R Int : 124 ms QRS Dur : 094 ms QT Int : 410 ms P-R-T Axes : 037 026 013 degrees QTc Int : 455 ms NORMAL SINUS RHYTHM NORMAL ECG WHEN COMPARED WITH ECG OF 14-SEP-2017 12:01, NO SIGNIFICANT CHANGE WAS FOUND Confirmed by TR MCNULTY MD ([id number]) on 10/30/2018 9:41:52 AM Referred By: Confirmed By:TR MCNULTY MD
== END 2018-10-30 02:08 | disposition home or self-care (01) ==
LOC: JER 22:54
DX: R07.9 Chest pain, unspecified (principal); R60.0 Localized edema; E78.5 Hyperlipidemia, unspecified; R16.0 Hepatomegaly, not elsewhere classified
CPT/HCPCS: 36415; 71046-TC-FY; 80053; 84703; 85025; 85379; 93005; 93010; 93970-TC; 99282-25

== ENCOUNTER 2020-08-27 13:42 | Emergency (ER) | payer OTHER ==
[2020-08-27 13:54] VITALS: BP 119/62; PULSE 85; TEMP 98.1; BMI 32.7
[2020-08-27] MEDS ORDERED: IBUPROFEN 600 MG TABLET (FP) PO ONE ×2 (14:25→15:18)
[2020-08-27 15:11] LABS: HCG,QUALITATIVE URINE Negative
== END 2020-08-27 16:51 | disposition home or self-care (01) ==
LOC: FER 13:42
DX: N83.202 Unspecified ovarian cyst, left side (principal)
CPT/HCPCS: 76775-TC; 76830-TC; 81003; 84703; 87086; 99285-25

== ENCOUNTER 2020-09-09 17:00 | Emergency (ER) | payer OTHER ==
[2020-09-09 17:08] VITALS: BP 135/84; PULSE 78; TEMP 98.1; BMI 32.1
[2020-09-09] MEDS ORDERED: ACETAMINOPHEN 325 MG TABLET (FP) PO ONE (17:28)
[2020-09-09] MEDS ORDERED: ACETAMINOPHEN 325 MG TABLET (FP) ONE (17:30)
[2020-09-09] MEDS ORDERED: LIDOCAINE 5% TOPICAL PATCH TP ONE (18:01)
[2020-09-09] MEDS ORDERED: LIDOCAINE 5% TOPICAL PATCH ONE (18:03)
[2020-09-09] MEDS ORDERED: LIDOCAINE PATCH REMOVAL MC SCH (22:00)
== END 2020-09-09 19:11 | disposition home or self-care (01) ==
LOC: FER 17:00
DX: M54.5 Low back pain (principal)
CPT/HCPCS: 71046-TC-FY; 93005; 99285-25

== ENCOUNTER 2020-10-22 12:07 | Emergency (ER) | payer OTHER ==
[2020-10-22 12:29] VITALS: BMI 31.7
[2020-10-22] MEDS ORDERED: MAG HYDROX/AL HYDROX/SIMETH 30 ML UNIT-DOSE CUP PO ONE (12:42)
[2020-10-22] MEDS ORDERED: FAMOTIDINE 20 MG TABLET PO ONE (12:42)
[2020-10-22] MEDS ORDERED: FAMOTIDINE 20 MG TABLET ONE (14:34)
[2020-10-22] MEDS ORDERED: MAG HYDROX/AL HYDROX/SIMETH 30 ML UNIT-DOSE CUP ONE (14:35)
[2020-10-22 15:08] LABS: BASO % 0.1 % (0-2.0); EOS % 0.8 % (0-4.5); HEMOGLOBIN 12.7 GM/dL (10.7-15.3); LYMPH % 24.5 % (8-40); MCH 24.7 pg (25.7-33.7); MCHC 31.8 g/dl (32.0-36.0); MEAN CELL VOLUME 77.6 fl (80-96); MEAN PLT VOLUME 7.9 fl (7.5-11.1); MONO % 7.5 % (3.8-10.2); NEUT % 67.1 % (42.8-82.8); PLATELET COUNT 386 K/MM3 (134-434); RBC 5.15 M/mm3 (3.60-5.2); RDW 16.1 % (11.6-15.6); WHITE BLOOD COUNT 10.2 K/mm3 (4.0-10.0)
[2020-10-22 15:39] LABS: POTASSIUM 4.1 mmol/L (3.5-5.1)
[2020-10-22 15:41] LABS: CALCIUM 9.4 mg/dL (8.5-10.1)
[2020-10-22 15:42] LABS: BLOOD UREA NITROGEN 9.1 mg/dL (7-18)
[2020-10-22 15:44] LABS: CREATININE 0.7 mg/dL (0.55-1.3)
[2020-10-22 15:46] LABS: BILIRUBIN,TOTAL 0.3 mg/dL (0.2-1); TOT PROT 7.9 g/dl (6.4-8.2)
[2020-10-22 15:55] LABS: EPI CELLS >36 /uL (0-25.1); HYALINE CASTS 4 /uL (0-3.1); URINE APPEARANCE CLOUDY; URINE BACTERIA 2004 /uL (0-1359); URINE BILIRUBIN NEGATIVE (NEGATIVE); URINE COLOR YELLOW; URINE GLUCOSE (UA) NEGATIVE (NEGATIVE); URINE KETONE TRACE (NEGATIVE); URINE LEUK ESTERASE 2+ (NEGATIVE); URINE NITRITE NEGATIVE (NEGATIVE); URINE PROTEIN NEGATIVE (NEGATIVE); URINE RBC 20 /uL (0-23.9); URINE WBC 122 /uL (0-25.8)
[2020-10-22 18:48] VITALS: BP 114/67; PULSE 92
[2020-10-22 18:49] VITALS: TEMP 98.2
== END 2020-10-22 19:02 | disposition home or self-care (01) ==
LOC: JER 12:07
DX: O26.891 Other specified pregnancy related conditions, first trimester (principal); R10.11 Right upper quadrant pain; Z3A.01 Less than 8 weeks gestation of pregnancy
CPT/HCPCS: 36415; 76705-TC; 76817-TC; 80053; 81003; 83690; 84702; 84703; 85025; 87086; 99284-25

== ENCOUNTER 2020-10-26 16:29 | Emergency (ER) | payer OTHER ==
[2020-10-26 16:38] VITALS: TEMP 98.5; BMI 31.7
[2020-10-26] MEDS ORDERED: SODIUM CHLORIDE 0.9% 500 ML INFUS.BAG IV ONE (17:01)
[2020-10-26] MEDS ORDERED: ACETAMINOPHEN 1000 MG/100 ML VIAL (NON FORMULARY) IVPB ONE (17:01)
[2020-10-26] MEDS ORDERED: ACETAMINOPHEN INJECTION 100 ML IVPB ONE (17:20)
[2020-10-26 17:49] LABS: BASO % 0.2 % (0-2.0); EOS % 1.2 % (0-4.5); HEMATOCRIT 38.7 % (32.4-45.2); HEMOGLOBIN 12.5 GM/dL (10.7-15.3); LYMPH % 25.9 % (8-40); MCH 24.6 pg (25.7-33.7); MCHC 32.2 g/dl (32.0-36.0); MEAN CELL VOLUME 76.3 fl (80-96); MEAN PLT VOLUME 7.7 fl (7.5-11.1); MONO % 8.7 % (3.8-10.2); PLATELET COUNT 378 K/MM3 (134-434); RBC 5.07 M/mm3 (3.60-5.2); RDW 15.6 % (11.6-15.6); WHITE BLOOD COUNT 10.3 K/mm3 (4.0-10.0)
[2020-10-26 18:08] LABS: POTASSIUM 4.3 mmol/L (3.5-5.1)
[2020-10-26 18:10] LABS: BLOOD UREA NITROGEN 12.5 mg/dL (7-18); CALCIUM 9.2 mg/dL (8.5-10.1)
[2020-10-26 18:15] LABS: BILIRUBIN,TOTAL 0.3 mg/dL (0.2-1); CREATININE 0.7 mg/dL (0.55-1.3); TOT PROT 7.6 g/dl (6.4-8.2)
[2020-10-26 20:39] VITALS: BP 110/68; PULSE 78
== END 2020-10-26 20:39 | disposition home or self-care (01) ==
LOC: JER 16:29
PROC: 3E0333Z Introduction of Anti-inflammatory into Peripheral Vein, Percutaneous Approach (ICD-10-PCS; principal; 2020-10-26)
DX: O26.851 Spotting complicating pregnancy, first trimester (principal); Z3A.01 Less than 8 weeks gestation of pregnancy
CPT/HCPCS: 36415; 76817-TC; 80053; 84702; 85025; 86850; 86900; 86901; 99284-25; J0131

== ENCOUNTER 2021-12-23 10:32 | Emergency (ER) | payer OTHER ==
[2021-12-23 10:59] VITALS: BP 128/68; PULSE 91; TEMP 99; BMI 34.2
[2021-12-23] MEDS ORDERED: SODIUM CHLORIDE 1,000 ML IV STA (11:12)
[2021-12-23 11:37] LABS: HEMATOCRIT 37.2 % (32.4-45.2); HEMOGLOBIN 12.4 G/dL (10.7-15.3); MCH 25.6 pg (25.7-33.7); MCHC 33.3 g/dl (32.0-36.0); MEAN PLT VOLUME 8.1 fl (7.5-11.1); PLATELET COUNT 310.6 10^3/uL (134-434); RBC 4.83 10^6/uL (3.60-5.2); WHITE BLOOD COUNT 9.1 10^3/uL (4.0-10.8)
[2021-12-23 11:45] LABS: BILIRUBIN,TOTAL 0.5 mg/dl (0.2-1); CALCIUM 9.1 mg/dl (8.5-10); CREATININE 0.7 mg/dl (0.55-1.3); TOT PROT 7.3 g/dl (6.4-8.2)
[2021-12-23 13:33] LABS: EPITHELIAL CELLS FEW /hpf
== END 2021-12-23 13:52 | disposition home or self-care (01) ==
LOC: FER 10:32
PROC: 3E0337Z Introduction of Electrolytic and Water Balance Substance into Peripheral Vein, Percutaneous Approach (ICD-10-PCS; principal; 2021-12-23)
DX: K52.9 Noninfective gastroenteritis and colitis, unspecified (principal)
CPT/HCPCS: 36415; 80053; 81003; 81015; 84703; 85025; 99284-25

== ENCOUNTER 2022-03-17 18:11 | Emergency (ER) | payer OTHER ==
[2022-03-17 18:31] VITALS: BP 121/76; PULSE 96; TEMP 99; BMI 33.3
[2022-03-17] MEDS ORDERED: IBUPROFEN 600 MG TABLET (FP) PO ONE ×2 (19:17→19:19)
== END 2022-03-17 23:10 | disposition home or self-care (01) ==
LOC: FER 18:11
DX: S92.415A Nondisplaced fracture of proximal phalanx of left great toe, initial encounter for closed fracture (principal); S83.91XA Sprain of unspecified site of right knee, initial encounter; W19.XXXA Unspecified fall, initial encounter
CPT/HCPCS: 73562-TC-RT-FY; 73660-TC-FY; 73660-TC-LT-FY; 99284-25

== ENCOUNTER 2023-03-18 20:31 | Emergency (ER) | payer OTHER ==
[2023-03-18 20:36] VITALS: BP 137/82; PULSE 92; RESP 18; TEMP 97.5; BMI 34.2
[2023-03-18 21:23] LABS: EPI CELLS 8 /uL (0-25.1); HYALINE CASTS 0 /uL (0-3.1); PH,URINE 7.5 (5.0-8.0); URINE APPEARANCE CLEAR; URINE BACTERIA 573 /uL (0-1359); URINE BILIRUBIN NEGATIVE (NEGATIVE); URINE COLOR YELLOW; URINE GLUCOSE (UA) NEGATIVE (NEGATIVE); URINE KETONE NEGATIVE (NEGATIVE); URINE LEUK ESTERASE 2+ (NEGATIVE); URINE NITRITE NEGATIVE (NEGATIVE); URINE PROTEIN NEGATIVE (NEGATIVE); URINE RBC 38 /uL (0-23.9); URINE WBC 257 /uL (0-25.8)
[2023-03-18] MEDS ORDERED: PHENAZOPYRIDINE HCL 100 MG TABLET (FP) PO ONE (21:49)
[2023-03-18] MEDS ORDERED: NITROFURANTOIN MACROCRYSTAL 50 MG CAPSULE (FP) PO SCH (22:00)
[2023-03-18] MEDS ORDERED: PHENAZOPYRIDINE HCL 100 MG TABLET (FP) ONE (22:03)
[2023-03-18] MEDS ORDERED: NITROFURANTOIN MACROCRYSTAL 50 MG CAPSULE (FP) ONE (22:03)
== END 2023-03-18 22:20 | disposition home or self-care (01) ==
LOC: JER 20:31 → JERFT 20:31
DX: R30.0 Dysuria (principal); R35.0 Frequency of micturition; R39.15 Urgency of urination; R10.30 Lower abdominal pain, unspecified; R31.9 Hematuria, unspecified; N39.0 Urinary tract infection, site not specified
CPT/HCPCS: 81003; 87086; 87186; 99283-25

== ENCOUNTER 2023-06-15 13:19 | Observation (INO) | payer OTHER ==
[2023-06-15] MEDS ORDERED: ACETAMINOPHEN 1000 MG/100 ML BAG IVPB ONE (14:12)
[2023-06-15] MEDS ORDERED: LIDOCAINE 5% TOPICAL PATCH TP ONE (14:13)
[2023-06-15] MEDS ORDERED: LIDOCAINE 4% PATCH TP ONE (14:45)
[2023-06-15] MEDS ORDERED: ACETAMINOPHEN INJECTION 100 ML IVPB ONE (14:56)
[2023-06-15 15:09] LABS: BASO % 0.2 % (0-2.0); EOS % 2.4 % (0-4.5); HEMATOCRIT 32.7 % (32.4-45.2); HEMOGLOBIN 10.3 GM/dL (10.7-15.3); LYMPH % 25.1 % (8-40); MCHC 31.4 g/dl (32.0-36.0); MEAN CELL VOLUME 62.9 fl (80-96); MEAN PLT VOLUME 7.6 fl (7.5-11.1); NEUT % 60.3 % (42.8-82.8); PLATELET COUNT 376 10^3/uL (134-434); RBC 5.19 M/mm3 (3.60-5.2); RDW 17.9 % (11.6-15.6); WHITE BLOOD COUNT 9.8 K/mm3 (4.0-10.0)
[2023-06-15 15:10] LABS: MCH 19.7 pg (25.7-33.7)
[2023-06-15] MEDS ORDERED: KETOROLAC TROMETHAMINE 15 MG/ML VIAL IVPUSH ONE (15:14)
[2023-06-15 15:28] LABS: POTASSIUM 3.8 mmol/L (3.5-5.1)
[2023-06-15 15:30] LABS: ALBUMIN 3.4 g/dl (3.4-5.0); ANISOCYTOSIS 0; BLOOD UREA NITROGEN 13.4 mg/dL (7-18); CALCIUM 8.7 mg/dL (8.5-10.1); MACROCYTOSIS 0
[2023-06-15 15:33] LABS: CREATININE 0.6 mg/dL (0.55-1.3)
[2023-06-15 15:35] LABS: BILIRUBIN,TOTAL 0.4 mg/dL (0.2-1); TOT PROT 6.8 g/dl (6.4-8.2)
[2023-06-15] MEDS ORDERED: KETOROLAC TROMETHAMINE 15 MG/ML VIAL ONE (15:42)
[2023-06-15] MEDS ORDERED: ENOXAPARIN NA (PORCINE) 100 MG/1 ML DISP.SYRIN SQ ONE ×2 (17:17→17:31)
[2023-06-15 18:25] LABS: INR 1.03 (0.83-1.09); PROTHROMBIN TIME (PATIENT) 11.9 SEC (9.7-13.0)
[2023-06-15 18:27] LABS: ACTIVATED PTT 28.4 SECONDS (25.2-36.5)
[2023-06-15] MEDS ORDERED: LIDOCAINE PATCH REMOVAL MC SCH (22:00)
[2023-06-15 22:55] VITALS: BMI 35.9
[2023-06-15] MEDS ORDERED: ACETAMINOPHEN 325 MG TABLET (FP) PO PRN (23:17)
[2023-06-16] MEDS: APIXABAN 5 MG TABLET PO SCH ×2 (05:28→09:43)
[2023-06-16] MEDS ORDERED: APIXABAN 5 MG TABLET PO SCH (05:30)
[2023-06-16 09:04] LABS: HEMATOCRIT 32.4 % (32.4-45.2); HEMOGLOBIN 10.3 GM/dL (10.7-15.3); MCH 20.2 pg (25.7-33.7); MCHC 31.7 g/dl (32.0-36.0); MEAN CELL VOLUME 63.7 fl (80-96); MEAN PLT VOLUME 7.8 fl (7.5-11.1); PLATELET COUNT 304 10^3/uL (134-434); RBC 5.08 M/mm3 (3.60-5.2); RDW 17.6 % (11.6-15.6); WHITE BLOOD COUNT 7.3 K/mm3 (4.0-10.0)
[2023-06-16 09:38] LABS: BLOOD UREA NITROGEN 12.6 mg/dL (7-18); CALCIUM 8.9 mg/dL (8.5-10.1); MAGNESIUM 2.2 mg/dL (1.8-2.4)
[2023-06-16 09:42] LABS: CREATININE 0.5 mg/dL (0.55-1.3); PHOSPHOROUS 2.4 mg/dL (2.5-4.9)
[2023-06-16 11:42] LABS: POTASSIUM 3.7 mmol/L (3.5-5.1)
[2023-06-16 13:32] VITALS: RESP 20
[2023-06-16 14:39] VITALS: BP 137/70; PULSE 96; TEMP 98.5
[2023-06-18 15:08] LABS: DRVVT - 34.6 sec (0.0-47.0)
== END 2023-06-16 17:45 | disposition home or self-care (01) ==
LOC: JER 13:19 → JERBED 18:26 → INTOOBSV 18:26 → J7W 22:39
PROVIDERS: ADMIT Internal Medicine; ATTEND Nurse Practitioner Family
PROC: 3E033NZ Introduction of Analgesics, Hypnotics, Sedatives into Peripheral Vein, Percutaneous Approach (ICD-10-PCS; principal; 2023-06-15)
PROC: 3E023GC Introduction of Other Therapeutic Substance into Muscle, Percutaneous Approach (ICD-10-PCS; 2023-06-15)
PROC: 3E0333Z Introduction of Anti-inflammatory into Peripheral Vein, Percutaneous Approach (ICD-10-PCS; 2023-06-15)
DX: I26.99 Other pulmonary embolism without acute cor pulmonale (principal); M79.10 Myalgia, unspecified site; R06.02 Shortness of breath; R55 Syncope and collapse; Z86.718 Personal history of other venous thrombosis and embolism; D64.89 Other specified anemias; Z86.711 Personal history of pulmonary embolism; E05.90 Thyrotoxicosis, unspecified without thyrotoxic crisis or storm; J45.909 Unspecified asthma, uncomplicated; M41.9 Scoliosis, unspecified; R00.0 Tachycardia, unspecified; R06.00 Dyspnea, unspecified; R05.9 Cough, unspecified; R06.01 Orthopnea; R51.9 Headache, unspecified; E28.2 Polycystic ovarian syndrome; Z88.0 Allergy status to penicillin
CPT/HCPCS: 36415; 71046-TC-FY; 71275-TC; 80048; 80053; 81240; 81241; 82728; 83540; 83550; 83735; 84100; 84439; 84443; 84484; 84703; 85025; 85027; 85045; 85300; 85610; 85613; 85730; 85732; 86038; 93005; 93010; 93306-TC; 93970-TC; 96372; 96374; 96375; 99285-25; G0378

== ENCOUNTER 2023-07-01 16:25 | Day surgery (SDC) | payer OTHER ==
[~2023-07-01 16:25] MED LIST: FERRIC CARBOXYMALTOSE 750 MG in SODIUM CHLORIDE 250 ML IVPB ONE
[2023-07-01 17:37] VITALS: BP 134/74; PULSE 107; RESP 20; TEMP 98.9
== END 2023-07-01 17:00 | disposition home or self-care (01) ==
LOC: JONCNONCHE 16:25
PROVIDERS: ATTEND Thoracic Surgery (Cardiothoracic Vascular Surgery)
PROC: 3E033GC Introduction of Other Therapeutic Substance into Peripheral Vein, Percutaneous Approach (ICD-10-PCS; principal; 2023-07-01)
DX: D50.9 Iron deficiency anemia, unspecified (principal)
CPT/HCPCS: 96365; J1439

== ENCOUNTER 2024-01-29 08:54 | Emergency (ER) | payer OTHER ==
[2024-01-29 09:03] VITALS: TEMP 99.4; BMI 34.2
[2024-01-29] MEDS ORDERED: ACETAMINOPHEN INJECTION 100 ML IVPB ONE (09:32)
[2024-01-29] MEDS ORDERED: ONDANSETRON 4 MG/2 ML VIAL ONE ×2 (09:32→09:34)
[2024-01-29] MEDS: SODIUM CHLORIDE 0.9% 500 ML INFUS.BAG IV ONE (09:49)
[2024-01-29] MEDS: ACETAMINOPHEN 1000 MG/100 ML BAG IVPB ONE (09:49)
[2024-01-29] MEDS: ONDANSETRON 4 MG/2 ML VIAL IVPUSH ONE (09:49)
[2024-01-29 09:59] LABS: BASO % 0.1 % (0-2.0); EOS % 0.3 % (0-4.5); HEMATOCRIT 41.7 % (32.4-45.2); HEMOGLOBIN 13.7 GM/dL (10.7-15.3); LYMPH % 12.7 % (8-40); MCH 25.5 pg (25.7-33.7); MCHC 32.9 g/dl (32.0-36.0); MEAN CELL VOLUME 77.5 fl (80-96); MEAN PLT VOLUME 7.5 fl (7.5-11.1); MONO % 7.1 % (3.8-10.2); NEUT % 79.8 % (42.8-82.8); PLATELET COUNT 314 10^3/uL (134-434); RBC 5.38 M/mm3 (3.60-5.2); RDW 13.7 % (11.6-15.6); WHITE BLOOD COUNT 7.6 K/mm3 (4.0-10.0)
[2024-01-29 10:39] LABS: POTASSIUM 3.9 mmol/L (3.5-5.1)
[2024-01-29 10:42] LABS: ALBUMIN 3.8 g/dl (3.4-5.0); BLOOD UREA NITROGEN 12.7 mg/dL (7-18); MAGNESIUM 2.1 mg/dL (1.8-2.4)
[2024-01-29 10:44] LABS: CREATININE 0.7 mg/dL (0.55-1.3)
[2024-01-29 10:46] LABS: BILIRUBIN,TOTAL 0.8 mg/dL (0.2-1)
[2024-01-29] MEDS ORDERED: KETOROLAC TROMETHAMINE 15 MG/ML VIAL ONE (11:01)
[2024-01-29] MEDS ORDERED: METOCLOPRAMIDE HCL INJECTION 10 MG/2 ML VIAL ONE (11:02)
[2024-01-29] MEDS: METOCLOPRAMIDE HCL INJECTION 10 MG/2 ML VIAL IVPUSH ONE (11:04)
[2024-01-29 11:18] VITALS: BP 108/57; PULSE 96; RESP 20
[2024-01-29] MEDS ORDERED: LISINOPRIL 20 MG TABLET ONE (11:34)
== END 2024-01-29 11:37 | disposition home or self-care (01) ==
LOC: JER 08:54
PROC: 3E033NZ Introduction of Analgesics, Hypnotics, Sedatives into Peripheral Vein, Percutaneous Approach (ICD-10-PCS; principal; 2024-01-29)
PROC: 3E033GC Introduction of Other Therapeutic Substance into Peripheral Vein, Percutaneous Approach (ICD-10-PCS; 2024-01-29)
PROC: 3E033GC Introduction of Other Therapeutic Substance into Peripheral Vein, Percutaneous Approach (ICD-10-PCS; 2024-01-29)
DX: K52.9 Noninfective gastroenteritis and colitis, unspecified (principal); R10.11 Right upper quadrant pain; R11.2 Nausea with vomiting, unspecified
CPT/HCPCS: 36415; 76705-TC; 80053; 83690; 83735; 84703; 85025; 93005; 93010; 99285-25; J0131

== ENCOUNTER 2024-04-18 07:59 | Emergency (ER) | payer OTHER ==
[2024-04-18 08:12] VITALS: RESP 18; TEMP 98.9; BMI 34.2
[2024-04-18] MEDS ORDERED: IBUPROFEN 400 MG TABLET (FP) PO ONE (10:09)
[2024-04-18] MEDS ORDERED: ACETAMINOPHEN 500 MG TABLET (FP) ONE (10:09)
[2024-04-18] MEDS: IBUPROFEN 400 MG TABLET (FP) PO ONE (10:13)
[2024-04-18] MEDS: ACETAMINOPHEN 500 MG TABLET (FP) PO ONE (10:14)
[2024-04-18 12:21] VITALS: BP 124/72; PULSE 103
== END 2024-04-18 10:36 | disposition home or self-care (01) ==
LOC: JER 07:59 → JERFT 07:59
DX: U07.1 COVID-19 (principal); R05.9 Cough, unspecified; M79.10 Myalgia, unspecified site; R53.83 Other fatigue; R07.9 Chest pain, unspecified; R11.0 Nausea; R68.83 Chills (without fever); R00.0 Tachycardia, unspecified
CPT/HCPCS: 0241U-QW; 93005; 93010; 99284-25

== ENCOUNTER 2025-02-14 09:01 | Day surgery (SDC) | payer OTHER ==
[2025-02-14] MEDS: FERRIC CARBOXYMALTOSE 750 MG in SODIUM CHLORIDE 250 ML IVPB ONE (09:44)
[2025-02-14 14:58] VITALS: BP 124/60; PULSE 87; RESP 18; TEMP 98.4
== END 2025-02-14 10:45 | disposition home or self-care (01) ==
LOC: JONCNONCHE 09:01 → J7W 09:02 → JONCNONCHE 10:45
PROVIDERS: ATTEND Nurse Practitioner Family
PROC: 3E033GC Introduction of Other Therapeutic Substance into Peripheral Vein, Percutaneous Approach (ICD-10-PCS; principal; 2025-02-14)
DX: D50.9 Iron deficiency anemia, unspecified (principal)
CPT/HCPCS: 84703; 96365; J1439

== ENCOUNTER 2025-02-22 15:56 | Day surgery (SDC) | payer OTHER ==
[2025-02-22] MEDS: FERRIC CARBOXYMALTOSE 750 MG in SODIUM CHLORIDE 250 ML IVPB ONE (16:15)
[2025-02-22 17:10] VITALS: TEMP 98.8
[2025-02-22 17:18] VITALS: BP 125/65; PULSE 96; RESP 20
== END 2025-02-22 17:15 | disposition home or self-care (01) ==
LOC: J7W 15:56 → JONCNONCHE 15:56
PROVIDERS: ATTEND Nurse Practitioner Family
PROC: 3E033GC Introduction of Other Therapeutic Substance into Peripheral Vein, Percutaneous Approach (ICD-10-PCS; principal; 2025-02-22)
DX: D50.9 Iron deficiency anemia, unspecified (principal)
CPT/HCPCS: J1439